=== PATIENT | male | born 2000 | race Caucasian/White ===

== ENCOUNTER 2021-07-20 21:22 | Emergency (ER) | payer OTHER ==
[~2021-07-20] VITALS: Ht 177.8 cm; Wt 103.4 kg
== END 2021-07-20 23:05 | disposition home or self-care (01) ==
LOC: ED 21:22
DX: G43.909 Migraine, unspecified, not intractable, without status migrainosus (principal); Z88.6 Allergy status to analgesic agent; Z88.8 Allergy status to other drugs, medicaments and biological substances; Z88.5 Allergy status to narcotic agent
CPT/HCPCS: 70450; 96374; 96375; 99283-25; J0780; J1100; J1200